=== PATIENT | female | born 1985 | race Caucasian/White ===

== ENCOUNTER 2016-06-30 07:59 | Emergency (ER) | payer OTHER ==
--- NOTE | ~2016-06-30 | EKG ---
PATIENT: JASMEET BATISTA UNIT #: [id number] Ventricular Rate: 77 BPM Atrial Rate: 77 BPM P-R Interval: 160 ms QRS Duration: 78 ms Q-T Interval: 388 ms QTC Calculation(Bezet): 439 ms P Rogers: 34 degrees Calculated R Rogers: 28 degrees Calculated T Rogers: 54 degrees Diagnosis Line: Normal sinus rhythm Diagnosis Line: Normal ECG Diagnosis Line: When compared with ECG of 30-JUN-2016 07:34, Diagnosis Line: (unconfirmed) Diagnosis Line: No significant change was found Diagnosis Line: Confirmed by BASHIR SUTHERLAND MD ([id number]) on 06/30/2016 Diagnosis Line: 6:04:06 PM INTERPRETING MD: KOKO EASON
--- NOTE | ~2016-06-30 | EKG ---
PATIENT: JASMEET BATISTA UNIT #: [id number] Ventricular Rate: 89 BPM Atrial Rate: 89 BPM P-R Interval: 148 ms QRS Duration: 82 ms Q-T Interval: 362 ms QTC Calculation(Bezet): 440 ms P Corona: 63 degrees Calculated R Corona: 29 degrees Calculated T Corona: 67 degrees Diagnosis Line: Normal sinus rhythm Diagnosis Line: Normal ECG Diagnosis Line: No previous ECGs available Diagnosis Line: Confirmed by BASHIR SUTHERLAND MD ([id number]) on 06/30/2016 Diagnosis Line: 6:04:05 PM INTERPRETING MD: KOKO EASON
--- NOTE | ~2016-06-30 | CR63 ---
[facility]. [facility] A Service of [facility] RADIOLOGY TEXT RESULTS PATIENT: JASMEET BATISTA LOCATION: SED : 85 UNIT #: [id number] AGE: [address]: Cosme Chamberlain MD SEX: F ORDER DR: [id number] [place] [id number] E MR#: [id number] Acc #: [id number] NAME: JASMEET BATISTA : 1985 SEX: F STUDY DATE/TIME: 06/30/2016 9:39 UNIT: SED ROOM: STUDY DESCRIPTION: CR Chest 2 View Attending Physician: Cosme Chamberlain M.D. Ordering Physician: Cosme Chamberlain M.D. Primary Care Physician: No Primary Care Physician MEDICAL IMAGING REPORT This report is preliminary unless electronic signature is present. EXAM PA and lateral radiographs of the chest. INDICATION Squeezing chest pain. Left-sided pain. Two days duration. TECHNIQUE PA and lateral radiographs of the chest were presented without prior films for comparison. FINDINGS Heart and mediastinum normal in size and contour. The lungs are well inflated bilaterally. No evidence of acute infectious or inflammatory disease, pleural effusion or pneumothorax. No suspicious nodule. Bony structures unremarkable. Visualized upper abdomen unremarkable. Dictated by... Mike Sarabia M.D. THIS IS AN ELECTRONICALLY VERIFIED REPORT Mike Sarabia M.D. at 07/02/2016 5:52 PM ELEUTERIO/nehemiah TD: 06/30/2016 11:58 JOB #: [id number] MEDICAL IMAGING REPORT
[2016-06-30 08:30] LABS: BASOPHIL% 0.5 % (0-2.5); EOSINOPHIL# 0.3 X10e3 (0-0.7); HEMATOCRIT 38.1 % (35.0-45.0); HEMOGLOBIN 12.6 gm/dL (12.0-16.0); LYMPHOCYTE# 1.8 X10e3 (1.0-3.5); LYMPHOCYTE% 24.9 % (17.0-45.0); MEAN CELL VOLUME 85.2 FL (83-96); MEAN CORPUSCULAR HEMOGLOBIN 28.2 PG (28-34); MEAN CORPUSCULAR HGB CONC 33.1 g/dL (30-36); MEAN PLATELET VOLUME 9.2 FL (6.5-11.5); MONOCYTE# 0.4 X10e3 (0-1.0); MONOCYTE% 4.9 % (3.0-12.0); NEUTROPHIL# 4.8 X10e3 (1.5-7.1); NEUTROPHIL% 65.7 % (40-75); PLATELET COUNT 241 X10e3 (140-420); RED BLOOD COUNT 4.48 X10e (3.90-5.30); RED CELL DISTRIBUTION WIDTH 13.6 % (11.0-15.5); WHITE BLOOD COUNT 7.3 X10e3 (4.0-10.5)
[2016-06-30 08:37] LABS: DIFF IND NO
[2016-06-30 08:44] LABS: POC - CKMB <1.0 ng/mL (0.0-7.9); POC - MYOGLOBIN 85.6 ng/mL (0.0-169.0); POC - TROPONIN <0.05 ng/mL (<=0.05)
[2016-06-30 08:53] LABS: ALKALINE PHOSPHATASE 108 U/L (32-92); ALT (SGPT) 19 U/L (10-40); AST (SGOT) 21 U/L (10-42); BILIRUBIN, DIRECT 0.1 mg/dL (0.0-0.2); BILIRUBIN,INDIRECT 0.5 mg/dL (0.0-0.9); BILIRUBIN,TOTAL 0.6 mg/dL (0.2-2.0); BLOOD UREA NITROGEN 7 mg/dL (9-23); BUN/CREATININE RATIO 11.66; CALCIUM SERUM 8.6 mg/dL (8.4-10.2); CARBON DIOXIDE 23 mmol/L (22-31); CHLORIDE 104 mmol/L (100-111); CREATININE SERUM 0.6 mg/dL (0.6-1.4); GLOM FILT RATE Estimated ABOVE60 mL/min (>60); GLUCOSE FASTING 107 mg/dL (70-110); POTASSIUM 3.3 mmol/L (3.5-5.1); PROTEIN TOTAL SERUM 7.5 g/dL (6.0-8.3); SODIUM 135 mmol/L (135-145)
[2016-06-30 11:18] LABS: POC - CKMB <1.0 ng/mL (0.0-7.9); POC - MYOGLOBIN 45.5 ng/mL (0.0-169.0); POC - TROPONIN <0.05 ng/mL (<=0.05)
== END 2016-06-30 11:54 | disposition home or self-care (01) ==
LOC: SED 07:59
PROVIDERS: Emergency Medicine
DX: R07.89 Other chest pain (principal)
CPT/HCPCS: 36415; 71020; 80048; 80076; 82553; 83874; 84484; 85025; 93005; 99284